=== PATIENT | female | born 1950 | race Caucasian/White ===

== ENCOUNTER 2016-05-07 14:44 | Emergency (ER) | payer MEDICARE ==
[~2016-05-07] VITALS: Ht 142.2 cm; Wt 41.0 kg
[~2016-05-07 14:44] MED LIST: BONI3INJ IV; FOLI1TAB PO; HYDR200T42 PO; METH2.5 PO; OMEP20CA5 PO; PRED2.5T4 PO
[2016-05-07 14:54] VITALS: BP 126/68; PULSE 104; RESP 16; TEMP 97.9; O2SAT 100
[2016-05-07] MEDS ORDERED: PRED5TAB PO (15:10)
[2016-05-07] MEDS ORDERED: FOLI1TAB4 PO (15:10)
[2016-05-07] MEDS ORDERED: METH2.5T PO (15:10)
[2016-05-07] MEDS ORDERED: PLAQ200T PO (15:10)
--- NOTE | 2016-05-07 15:16 | PD ---
HPI Chief Complaint: Musculoskeletal Complaint Time Seen by Provider: 15:08 Travel History International Travel<30 days: No Contact w/Intl Traveler<30days: No Traveled to known affect area: No History of Present Illness HPI 65-year-old female complains of right shoulder pain. Patient states that she fell on the bathroom today. Patient states that she landed on her right side. Patient states that she probably hit her head. Patient denies loss of consciousness. Patient denies any headache or neck pain. Patient denies any chest pain or shortness of breath. Patient denies abdominal pain. Patient states that she has sharp pain localized to right shoulder. Patient denies any pain radiation. Patient denies any focal weakness or numbness of extremity. On a scale of 1-10 the pain is a 9. PFSH Past Medical History Arthritis: Yes (RA) GERD: Yes (ACID REFLUX-HEARTBURN) Menopausal: Yes Past Surgical History Tonsillectomy: Yes Other Surgery: Yes (BILAT FEET R/T INFECTIONS) Social History Alcohol Use: No Tobacco Use: No Substance Use: No Allergies-Medications (Allergen,Severity, Reaction): Coded Allergies: No Known Allergies (Verified , 05/07/16) Reported Meds & Prescriptions Reported Meds & Active Scripts Active Reported Prednisone 5 Mg Tab 5 Mg PO DAILY Methotrexate 2.5 Mg Tab 15 Mg PO Q7D Plaquenil (Hydroxychloroquine Sulfate) 200 Mg Tab 200 Mg PO DAILY Take with food Folate (Folic Acid) 1 Mg Tab 1 Mg PO DAILY Review of Systems General / Constitutional: No: Fever Eyes: No: Visual changes HENT: No: Headaches Cardiovascular: No: Chest Pain or Discomfort Respiratory: No: Shortness of Breath Gastrointestinal: No: Abdominal Pain Genitourinary: No: Dysuria Musculoskeletal: Positive: Pain Skin: No Rash Neurologic: No: Weakness Psychiatric: No: Depression Endocrine: No: Polydipsia Hematologic/Lymphatic: No: Easy Bruising Physical Exam Narrative GENERAL: Well-nourished, well-developed patient. SKIN: Warm and dry. HEAD: Normocephalic. EYES: No scleral icterus. No injection or drainage. NECK: Supple, trachea midline. No JVD or lymphadenopathy. CARDIOVASCULAR: Regular rate and rhythm without murmurs, gallops, or rubs. RESPIRATORY: Breath sounds equal bilaterally. No accessory muscle use. GASTROINTESTINAL: Abdomen soft, non-tender, nondistended. MUSCULOSKELETAL: No cyanosis, or edema. BACK: Nontender without obvious deformity. No CVA tenderness. Patient has soft tissue swelling tenderness diffuse over the right shoulder joint. Limited range of motion the right shoulder secondary to pain. Sensorimotor function distally intact. Data Data Last Documented VS Vital Signs Date Time Temp Pulse Resp B/P Pulse Ox O2 Delivery O2 Flow Rate FiO2 05/07/16 14:54 97.9 104 16 126/68 100 Orders Shoulder, Limited(2vws) (05/07/16 15:08) Resp Oxygen Jeremy C Titrat 1-4 L (05/07/16 ) Ondansetron Inj (Zofran Inj) (05/07/16 16:00) Acetaminophen (Tylenol) (05/07/16 16:00) Sodium Chloride 0.9% Flush (Ns Flush) (05/07/16 21:00) Sodium Chloride 0.9% Flush (Ns Flush) (05/07/16 16:00) Shoulder, Limited(2vws) (05/07/16 16:07) MDM Medical Decision Making Medical Screen Exam Complete: Yes Emergency Medical Condition: Yes Differential Diagnosis Differential diagnosis including contusion, fracture, dislocation. Narrative Course 65-year-old female with right shoulder injury. Patient was x-ray and re-x- rayed right shoulder. First set of x-ray with possible dislocation. Second set x-ray without evidence of dislocation. Arthritic changes. Possible evulsion fracture acromion. Sling applied right arm. Diagnosis Primary Impression: Contusion of right shoulder Qualified Code: S40.011A - Contusion of right shoulder, initial encounter Patient Instructions: General Instructions Additional Instructions: Sling applied right arm. Tylenol with codeine as directed for pain. Follow-up with orthopedist. Med/Other Pt SpecificInfo: Prescription(s) given Scripts Acetaminophen-Codeine (Tylenol-Codeine #3)300-30 mg Tab1 Tab PO Q6HR PRN (PAIN SCALE 1 TO 10) #20 TAB Prov:Zaid Harrison MD 05/07/16 Disposition: 01 DISCHARGE HOME Condition: Stable Zaid Harrison MD May 07, 2016 15:16
[2016-05-07] MEDS ORDERED: ACETAMINOPHEN 325 MG TAB PO PRN (16:00)
[2016-05-07] MEDS ORDERED: ONDANSETRON HCL 4 MG/2 ML VIAL IV PRN (16:00)
[2016-05-07] MEDS ORDERED: SODIUM CHLORIDE 0.9% FLUSH 5 ML FLUSH IVF PRN (16:00)
[2016-05-07] MEDS ORDERED: TYLETAB34 PO (16:20)
[2016-05-07 16:39] VITALS: BP 130/67
--- NOTE | 2016-05-07 16:42 | RADHPO ---
EXAM DATE/TIME: 05/07/2016 15:22 [facility] COMPARISON: No previous studies available for comparison. INDICATIONS : Fell, right shoulder pain, limited ROM MEDICAL HISTORY : None. SURGICAL HISTORY : None. ENCOUNTER: Initial ACUITY: 1 day PAIN SCORE: 10/10 LOCATION: Right shoulder FINDINGS: There is an anterior/inferior dislocation of the shoulder on the AP. On the axillary, this appears to have been reduced. There is evidence for chronic rotator cuff tear with articular calcifications evident. CONCLUSION: Dislocation appeared to have been reduced. Complete shoulder series is suggested. Jose Miguel Coleman MD FACR on May 07, 2016 at 16:33 Board Certified Radiologist. This report was verified electronically.
--- NOTE | 2016-05-07 16:43 | RADHPO ---
EXAM DATE/TIME: 05/07/2016 16:10 [facility] COMPARISON: SHOULDER RIGHT LTD (2VWS), May 07, 2016, 15:22. INDICATIONS : Fell, right shoulder pain, limited ROM, MEDICAL HISTORY : None. SURGICAL HISTORY : None. ENCOUNTER: Initial ACUITY: 1 day PAIN SCORE: 10/10 LOCATION: Right shoulder FINDINGS/CONCLUSION: Alignment is now anatomic. There is evidence for chronic rotator cuff tear. There are extensive deg enerative changes about the shoulder. The humerus is in anatomic alignment. Jose Miguel Coleman MD FACR on May 07, 2016 at 16:36 Board Certified Radiologist. This report was verified electronically.
[2016-05-07] MEDS ORDERED: SODIUM CHLORIDE 0.9% FLUSH 5 ML FLUSH IVF SCH (21:00)
== END 2016-05-07 16:45 | disposition home or self-care (01) ==
LOC: PHED 14:44
DX: S40.011A Contusion of right shoulder, initial encounter (principal); M06.9 Rheumatoid arthritis, unspecified; Z87.19 Personal history of other diseases of the digestive system; W18.39XA Other fall on same level, initial encounter; Y92.002 Bathroom of unspecified non-institutional (private) residence as the place of occurrence of the external cause
CPT/HCPCS: 73030; 99283

== ENCOUNTER 2016-10-31 13:15 | Inpatient (IN) | payer MEDICARE ==
[~2016-10-31] VITALS: Ht 142.2 cm; Wt 37.5 kg
[~2016-10-31 13:15] MED LIST changes: -BONI3INJ IV; -FOLI1TAB PO; +FOLI1TAB4 PO; -HYDR200T42 PO; -METH2.5 PO; +METH2.5T PO; -OMEP20CA5 PO; +PLAQ200T PO; -PRED2.5T4 PO; +PRED5TAB PO; +TYLETAB34 PO
[2016-10-31 13:17] VITALS: BP 148/75; PULSE 128; RESP 18; TEMP 97.8; O2SAT 100
--- NOTE | 2016-10-31 13:23 | PD ---
Physical Exam Time Seen by Provider: 13:21 Narrative 66 y/o female sent here to be admitted for suspected osteomyelitis R foot, MRI w /without contrast R foot requested. Sent by Dr. Alfaro. Vital signs reviewed. Seen at triage desk. Awaiting bed placement. Data Data Last Documented VS Vital Signs Date Time Temp Pulse Resp B/P Pulse Ox O2 Delivery O2 Flow Rate FiO2 10/31/16 13:17 97.8 128 18 148/75 100 MDM Medical Record Reviewed: Yes Supervised Visit with ANNABEL: No Pawan Lopez Oct 31, 2016 13:23
--- NOTE | 2016-10-31 13:48 | PD ---
HPI Chief Complaint: Skin Problem Time Seen by Provider: 13:48 Travel History International Travel<30 days: No Contact w/Intl Traveler<30days: No Traveled to known affect area: No History of Present Illness HPI 66-year-old female with history of RA, on Plaquenil, methotrexate, and prednisone, presents to emergency department today for further evaluation of a left foot wound. Patient states she developed an ulcer on the plantar surface of her right foot approximately 6 weeks ago. She has been being followed by Dr. Craft, salon supervisor. She went there today and the wound was debrided at which time she was advised to come to the emergency department for further evaluation, admission, and treatment for possible osteomyelitis. Patient reports moderate pain in the right foot. She has been taking Keflex prior to today. She denies any fever or chills. No other symptoms to report. PFSH Past Medical History Arthritis: Yes (RA) GERD: Yes (ACID REFLUX-HEARTBURN) Menopausal: Yes Past Surgical History Tonsillectomy: Yes Other Surgery: Yes (BILAT FEET R/T INFECTIONS) Social History Alcohol Use: No Tobacco Use: No Substance Use: No Allergies-Medications (Allergen,Severity, Reaction): Coded Allergies: No Known Allergies (Verified , 05/07/16) Reported Meds & Prescriptions Reported Meds & Active Scripts Active Tylenol-Codeine #3 (Acetaminophen-Codeine) 300-30 mg Tab 1 Tab PO Q6HR PRN Reported Prednisone 5 Mg Tab 5 Mg PO DAILY Methotrexate 2.5 Mg Tab 15 Mg PO Q7D Plaquenil (Hydroxychloroquine Sulfate) 200 Mg Tab 200 Mg PO DAILY Take with food Folate (Folic Acid) 1 Mg Tab 1 Mg PO DAILY Review of Systems Except as stated in HPI: all other systems reviewed are Neg Physical Exam Narrative GENERAL: Well-nourished, elderly appearing female patient, in no acute distress SKIN: Focused skin assessment warm/dry. 1 cm in diameter ulcerative lesion on the plantar surface of the lateral aspect of the right foot. Tender to palpate. HEAD: Atraumatic. Normocephalic. EYES: Pupils equal and round. No scleral icterus. No injection or drainage. ENT: No nasal bleeding or discharge. Mucous membranes pink and moist. NECK: Trachea midline. No JVD. CARDIOVASCULAR: Regular rate and rhythm. No murmur appreciated. RESPIRATORY: No accessory muscle use. Clear to auscultation. Breath sounds equal bilaterally. GASTROINTESTINAL: Abdomen soft, non-tender, nondistended. Hepatic and splenic margins not palpable. MUSCULOSKELETAL: Multiple deformities of the finger and wrist, consistent with RA. Patient has amputation of all right toes. No clubbing. No cyanosis. No edema. NEUROLOGICAL: Awake and alert. No obvious cranial nerve deficits. Motor grossly within normal limits. Normal speech. PSYCHIATRIC: Appropriate mood and affect; insight and judgment normal. Data Data Last Documented VS Vital Signs Date Time Temp Pulse Resp B/P Pulse Ox O2 Delivery O2 Flow Rate FiO2 10/31/16: 97.8 128 18 148/75 100 Orders Complete Blood Count With Diff (10/31/16 13:24) Comprehensive Metabolic Panel (10/31/16 13:24) Prothrombin Time / Inr (Pt) (10/31/16 13:24) Act Partial Throm Time (Ptt) (10/31/16 13:24) Lactic Acid Sepsis Protocol (10/31/16 13:24) Blood Culture (10/31/16 13:24) C-Reactive Protein (Crp) (10/31/16 13:24) Westergren Sedimentation Rate (10/31/16 13:24) Electrocardiogram (10/31/16 ) Mri Foot W&W/O Contrast (10/31/16 ) Chest, Single Ap (10/31/16 ) Sodium Chlor 0.9% 1000 Ml Inj (Ns 1000 M (10/31/16 14:00) Piperacil-Tazo 4.5 Gm Premix (Zosyn 4.5 (10/31/16 14:29) Vancomycin Inj (Vancomycin Inj) (10/31/16 14:29) Labs Laboratory Tests Test 10/31/16 10/31/16 13:43 13:47 Lactic Acid Level 3.7 mmol/L White Blood Count 9.5 TH/MM3 Red Blood Count 4.16 MIL/MM3 Hemoglobin 10.9 GM/DL Hematocrit 34.0 % Mean Corpuscular Volume 81.8 FL Mean Corpuscular Hemoglobin 26.2 PG Mean Corpuscular Hemoglobin 32.0 % Concent Red Cell Distribution Width 17.8 % Platelet Count 172 TH/MM3 Mean Platelet Volume 11.6 FL Neutrophils (%) (Auto) 90.1 % Lymphocytes (%) (Auto) 7.4 % Monocytes (%) (Auto) 2.4 % Eosinophils (%) (Auto) 0.0 % Basophils (%) (Auto) 0.1 % Neutrophils # (Auto) 8.5 TH/MM3 Lymphocytes # (Auto) 0.7 TH/MM3 Monocytes # (Auto) 0.2 TH/MM3 Eosinophils # (Auto) 0.0 TH/MM3 Basophils # (Auto) 0.0 TH/MM3 CBC Comment DIFF FINAL Differential Comment Erythrocyte Sedimentation Rate 50 mm/hr Prothrombin Time 9.6 SEC Prothromb Time International 0.9 RATIO Ratio Activated Partial 23.3 SEC Thromboplast Time Sodium Level 141 MEQ/L Potassium Level 4.0 MEQ/L Chloride Level 106 MEQ/L Carbon Dioxide Level 23.5 MEQ/L Anion Gap 12 MEQ/L Blood Urea Nitrogen 12 MG/DL Creatinine 0.75 MG/DL Estimat Glomerular Filtration 77 ML/MIN Rate Random Glucose 161 MG/DL Calcium Level 9.3 MG/DL Total Bilirubin 0.2 MG/DL Aspartate Amino Transf 14 U/L (AST/SGOT) Alanine Aminotransferase 9 U/L (ALT/SGPT) Alkaline Phosphatase 72 U/L C-Reactive Protein 0.76 MG/DL Total Protein 7.0 GM/DL Albumin 3.2 GM/DL MDM Medical Decision Making Medical Screen Exam Complete: Yes Emergency Medical Condition: Yes Medical Record Reviewed: Yes Differential Diagnosis Venous stasis ulcer versus abscess versus osteomyelitis versus abrasion versus avulsion Narrative Course 66 year old female presents to emergency department for further evaluation of possible osteomyelitis the right foot. Patient is tachycardic upon arrival. She is afebrile. Other vital signs are stable. She does have an ulcerative wound on the plantar surface of the right foot. It is open from debridement earlier today by salon supervisor. CBC is without leukocyte hoses. Sedimentation rate is 50. CMP is without acute concern. Lactic acid is 3.7. CRP is 0.76. Patient is given IV vancomycin and Zosyn. MRI of the foot is ordered. A call has been placed to [facility] for admission. Diagnosis Primary Impression: Ulcer of right foot Qualified Code: L97.519 - Ulcer of right foot, with unspecified severity Additional Impressions: Failure of outpatient treatment Lactic acid acidosis Admitting Information Admitting Physician Requests: Admit Condition: Stable Mariposa Gaston Oct 31, 2016 13:48
[2016-10-31] MEDS ORDERED: SODIUM CHLOR 0.9% 1000 ML INJ 1,000 ML IV ONE (14:00)
[2016-10-31 14:06] LABS: AUTOMATED NEUTROPHIL # 8.5 TH/MM3 (1.8-7.7); BASOPHIL % 0.1 % (0.0-2.0); HEMO FLAGS DIFF FINAL; LYMPH % 7.4 % (9.0-44.0); LYMPHOCYTE # 0.7 TH/MM3 (1.0-4.8); MEAN CELL VOLUME 81.8 FL (80.0-100.0); MEAN CORPUSCULAR HEMOGLOBIN 26.2 PG (27.0-34.0); MONO % 2.4 % (0.0-8.0); NEUT % 90.1 % (16.0-70.0); PLATELET COUNT 172 TH/MM3 (150-450); RED BLOOD COUNT 4.16 MIL/MM3 (4.00-5.30); RED CELL DISTRIBUTION WIDTH 17.8 % (11.6-17.2); WHITE BLOOD COUNT 9.5 TH/MM3 (4.0-11.0)
[2016-10-31 14:18] LABS: APTT (PATIENT) 23.3 SEC (24.3-30.1); INTERNATIONAL NORMALIZED RATIO 0.9 RATIO; PROTHROMBIN TIME - PATIENT 9.6 SEC (9.8-11.6)
[2016-10-31 14:25] LABS: ALT (GPT) 9 U/L (10-53); ANION GAP 12 MEQ/L (5-15); AST (GOT) 14 U/L (15-37); BICARBONATE 23.5 MEQ/L (21.0-32.0); BLOOD UREA NITROGEN 12 MG/DL (7-18); CHLORIDE 106 MEQ/L (98-107); GLOMERULAR FILTRATION RATE 77 ML/MIN (>89); SODIUM (NA) 141 MEQ/L (136-145)
[2016-10-31 14:28] LABS: ALKALINE PHOSPHATASE 72 U/L (45-117); TOTAL BILIRUBIN ADULT 0.2 MG/DL (0.2-1.0)
[2016-10-31] MEDS ORDERED: PIPERACIL-TAZO 4.5 GM PREMIX 100 ML IV STA (14:29)
[2016-10-31] MEDS ORDERED: VANCOMYCIN INJ 1,000 MG in SODIUM CHLOR 0.9% 250 ML INJ 250 ML IV STA (14:29)
--- NOTE | 2016-10-31 15:18 | RADRPT ---
EXAM DATE/TIME: 10/31/2016 14:05 [facility] COMPARISON: CHEST PA & LAT, February 16, 2011, 20:52. INDICATIONS : Sepsis. MEDICAL HISTORY : None. SURGICAL HISTORY : Partial foot amputation. ENCOUNTER: Initial ACUITY: 1 day PAIN SCORE: 0/10 LOCATION: Bilateral chest FINDINGS: The lungs are clear without infiltrate, nodule, or mass. There is no appreciable pleural effusion fo r technique. Heart and mediastinum are unremarkable. CONCLUSION: No acute cardiopulmonary disease. Kaushal Jenkins MD on October 31, 2016 at 15:16 Board Certified Radiologist. This report was verified electronically.
[2016-10-31 15:37] VITALS: BP 136/60; PULSE 88; RESP 16; O2SAT 100
[2016-10-31 15:58] LABS: LACTIC ACID GHOST NOT REPORTABLE
--- NOTE | 2016-10-31 15:59 | HHI.HP ---
HPI Service [facility] Hospitalists Primary Care Physician Xavier Pena MD Admission Diagnosis Right foot ulcer; r/o osteomyelitis; lactic acidosis; failed outpt tx Chief Complaint: Right foot wound Travel History International Travel<30 Days: No Contact w/Intl Traveler <30 Da: No Traveled to Known Affected Are: No History of Present Illness Ms. Gerber is a pleasant 66 y/o with RA, on Plaquenil, methotrexate, and prednisone, who presented to the ED on 10/31/16 for further evaluation of a right foot wound. Patient states she developed an ulcer on the plantar surface of her right foot approximately 6 weeks ago. She has been followed by Dr. Craft as an outpt. She was seen there today and the wound was debrided at which time she was advised to come to the emergency department for further evaluation, admission, and treatment for possible osteomyelitis. Patient reports moderate pain in the right foot. She states that on 10/25/16 she noted some pus draining from the wound. She had Keflex at home and started taking it then. She denies any fever or chills. MRI of the foot is ordered. Blood cultures and wound culture was taken in the ED. Pt was given IV Vancomycin and Zosyn in the ED. Her ESR is 50 and her CRP is 0.76. Review of Systems Constitutional: DENIES: Fever, Chills Eyes: DENIES: Vision loss Ears, nose, mouth, throat: DENIES: Hearing loss Respiratory: DENIES: Cough, Shortness of breath Cardiovascular: DENIES: Chest pain, Palpitations, Lower Extremity Edema Gastrointestinal: DENIES: Abdominal pain, Constipation, Diarrhea, Nausea, Vomiting Integumentary: COMPLAINS OF: Abnormal pigmentation Neurologic: DENIES: Headache, Poor Balance Psychiatric: DENIES: Confusion Past Family Social History Past Medical History Severe RA, followed by Dr. Girard Osteoporosis Past Surgical History Amputated all toes on right foot Reported Medications Tylenol-Codeine #3 (Acetaminophen-Codeine) 300-30 mg Tab 1 Tab PO Q6HR PRN Prednisone 5 Mg PO DAILY Methotrexate 2.5 Mg Tab 15 Mg PO Q7D Plaquenil 200 Mg PO DAILY Folate 1 Mg PO DAILY Allergies: Coded Allergies: No Known Allergies (Verified , 05/07/16) Family History Noncontributory Social History Denies any alcohol, tobacco or illicit drug use Physical Exam Vital Signs Vital Signs Date Time Temp Pulse Resp B/P Pulse Ox O2 Delivery O2 Flow Rate FiO2 10/31/16 13:17 97.8 128 18 148/75 100 Physical Exam GENERAL: This is a well-nourished, well-developed patient, in no apparent distress. HEENT: Atraumatic. Normocephalic. No temporal or scalp tenderness. No scleral icterus. Airway patent. NECK: Trachea midline, supple, nontender. CARDIO: Regular. RESP: CTA bilaterally. No wheezes, rales, or rhonchi. ABD: +BS, soft, non-tender, nondistended. EXT: Right foot all toes amputated, 1 cm in diameter ulcerative lesion on the plantar surface of the lateral aspect of the right foot good pulses noted. Deformity of both hands consistent with RA NEURO: Awake and alert. Motor and sensory grossly within normal limits. Normal speech. Laboratory Laboratory Tests Test 10/31/16 10/31/16 13:43 13:47 Lactic Acid Level 3.7 White Blood Count 9.5 Red Blood Count 4.16 Hemoglobin 10.9 Hematocrit 34.0 Mean Corpuscular Volume 81.8 Mean Corpuscular Hemoglobin 26.2 Mean Corpuscular Hemoglobin 32.0 Concent Red Cell Distribution Width 17.8 Platelet Count 172 Mean Platelet Volume 11.6 Neutrophils (%) (Auto) 90.1 Lymphocytes (%) (Auto) 7.4 Monocytes (%) (Auto) 2.4 Eosinophils (%) (Auto) 0.0 Basophils (%) (Auto) 0.1 Neutrophils # (Auto) 8.5 Lymphocytes # (Auto) 0.7 Monocytes # (Auto) 0.2 Eosinophils # (Auto) 0.0 Basophils # (Auto) 0.0 CBC Comment DIFF FINAL Differential Comment Erythrocyte Sedimentation Rate 50 Prothrombin Time 9.6 Prothromb Time International 0.9 Ratio Activated Partial 23.3 Thromboplast Time Sodium Level 141 Potassium Level 4.0 Chloride Level 106 Carbon Dioxide Level 23.5 Anion Gap 12 Blood Urea Nitrogen 12 Creatinine 0.75 Estimat Glomerular Filtration 77 Rate Random Glucose 161 Calcium Level 9.3 Total Bilirubin 0.2 Aspartate Amino Transf 14 (AST/SGOT) Alanine Aminotransferase 9 (ALT/SGPT) Alkaline Phosphatase 72 C-Reactive Protein 0.76 Total Protein 7.0 Albumin 3.2 Date/Time Procedure Status Source Growth 10/31/16 14:50 Gram Stain Received Wound Foot Pending 10/31/16 14:50 Wound Culture Received Wound Foot Pending 10/31/16 13:50 Aerobic Blood Culture Received Blood Peripheral Pending 10/31/16 13:50 Anaerobic Blood Culture Received Blood Peripheral Pending Result Diagram: 10/31/16 1347 10/31/16 1347 Imaging Last Impressions Chest X-Ray 10/31/16 0000 Signed Impressions: Service Date/Time: Monday, October 31, 2016 14:05 - CONCLUSION: No acute cardiopulmonary disease. 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 - She reportedly developed an ulcer on the plantar surface of her right foot approximately 6 weeks ago and has been followed by Dr. Alfaro. She was seen by Dr. Alfaro today and the wound was debrided at which time she was advised to come to the emergency department for further evaluation, admission, and treatment for possible osteomyelitis. - She had been taking Keflex prior to today. - MRI of the foot is ordered. - Blood cultures and wound culture was taken in the ED. - Pt was given IV Vancomycin and Zosyn in the ED. We will hold on continuing antibiotics until see by podiatry - Her ESR is 50 and her CRP is 0.76. - Pain control PRN - Podiatry is consulted - Supportive care (2) Failure of outpatient treatment Status: Acute Plan: - See above. (3) Rheumatoid arthritis Status: Chronic Plan: - Pt with severe RA on Methotrexate, Plaquenil, and Prednisone - Pt follows with Dr. Haynes (4) GERD (gastroesophageal reflux disease) Status: Chronic Plan: PPI Assessment and Plan Patient examined. Assessment and plan formulated with Lulú Hoover PA-C. I agree with the above. Physician Certification 2 Midnight Certification Type: Admission for Inpatient Services Order for Inpatient Services The services are ordered in accordance with Medicare regulations or non- Medicare payer requirements, as applicable. In the case of services not specified as inpatient-only, they are appropriately provided as inpatient services in accordance with the 2-midnight benchmark. Estimated LOS (days): 3 3 days is the estimated time the patient will need to remain in the hospital, assuming treatment plan goals are met and no additional complications. Post-Hospital Plan: Not yet determined Problem Qualifiers (1) Ulcer of right foot: Qualified Code: L97.519 - Ulcer of right foot, with unspecified severity Lulú Hoover Oct 31, 2016 15:59 Etienne Minaya MD Oct 31, 2016 20:02
[2016-10-31] MEDS ORDERED: VITATAB25 PO (16:02)
[2016-10-31] MEDS ORDERED: FOLI1TAB6 PO (16:02)
[2016-10-31] MEDS ORDERED: ACETAMINOPHEN 325 MG TAB PO PRN (16:30)
[2016-10-31] MEDS ORDERED: VANCOMYCIN INJ 1,000 MG in SODIUM CHLOR 0.9% 250 ML INJ 250 ML IV SCH (16:30)
[2016-10-31] MEDS ORDERED: ACETAMINOPHEN/HYDROcodone 325 MG/5 MG TAB PO PRN (16:30)
[2016-10-31] MEDS ORDERED: Vancomycin Consult Pharmacy 1 EA OTHER SCH (16:30)
[2016-10-31] MEDS ORDERED: ONDANSETRON HCL 4 MG/2 ML VIAL IV PRN (16:30)
[2016-10-31 17:22] VITALS: BP 155/85
[2016-10-31] MEDS ORDERED: GADODIAMIDE PF 287 MG/ML 10 ML VIAL (for RAD MRI) IV ONE (18:41)
[2016-10-31 20:00] VITALS: BP 136/76; PULSE 95; RESP 20; TEMP 96.2; O2SAT 100
[2016-10-31] MEDS: DOCUSATE SODIUM 100 MG CAP PO SCH (21:00)
--- NOTE | 2016-10-31 22:09 | EKG ---
Date Performed: 10/31/2016 Time Performed: 14:28:13 PTAGE: 66 years EKG: Sinus rhythm MODERATE T-WAVE ABNORMALITY ABNORMAL ECG PREVIOUS TRACING : 02/16/2011 19.39 Compared to the previous tracing T wave changes present DOCTOR: Elias Nava Interpretating Date/Time 10/31/2016 22:08:40
--- NOTE | 2016-10-31 23:31 | RADRPT ---
EXAM DATE/TIME: 10/31/2016 18:13 [facility] COMPARISON: No previous studies available for comparison. INDICATIONS : Osteomyelitis. Wound on plantar surface of right foot for six weeks. CONTRAST: 10 cc Omniscan (gadodiamide) IV MEDICAL HISTORY : Rheumatoid arthritis. Osteoporosis. SURGICAL HISTORY : Tonsillectomy. Left hip. Toes amputated, right foot. ENCOUNTER: Subsequent ACUITY: 1 month PAIN SCORE: 5/10 LOCATION: Right foot TECHNIQUE: Multiplanar, multisequence MRI examination was performed without contrast and after the intravenous a dministration of gadolinium. FINDINGS: Previous distal foot amputation at the level of the mid metatarsals. There is an approximately 19 x 2 3 mm disc-shaped fluid collection distal and plantar to the first metatarsal remnant that is about 6 mm in maximal thickness. I don't see significant rim enhancement to substantiate that this is an absc ess. I don't see signal changes are of the first metatarsal remnant to support osteomyelitis. An irregular rim-enhancing fluid collection is seen plantar and distal to the fourth and fifth metata rsal remnants. This appears to be communicating with the skin. The fluid collection is roughly 10 x 1 5 x 27 mm in size. Scattered foci of cobos artifact noted which may represent postsurgical change or small gas bubbles. Distal surface of the fifth metatarsal remnant appears considerably irregular and in contact with the fluid collection, of concern for developing osteomyelitis. However, I don't see s ignal changes within the deep medullary space of the bone. Second, third and fourth metatarsals are quite clearly without osteomyelitis. CONCLUSION: 1. Previous distal foot amputation at the level of the mid metatarsals. 2. Soft tissue abscess plantar/distal to the fourth and fifth metatarsal remnants. The abscess extend s down to the distal surface of the fifth metatarsal remnant and the bone itself appears irregular; I believe there is superficial osteomyelitis developing of this bone. No osteomyelitis of the fourth m etatarsal. 3. Slightly organized fluid collection plantar and distal to the first metatarsal remnant that is mos t likely postoperative seroma. No features to substantiate abscess or first metatarsal remnant osteom yelitis. Lenard Hogan MD on October 31, 2016 at 23:21 Board Certified Radiologist. This report was verified electronically.
[2016-11-01] VITALS: BP 136/65; PULSE 88; RESP 21; TEMP 96.8; O2SAT 100
[2016-11-01 05:40] LABS: AUTOMATED NEUTROPHIL # 4.7 TH/MM3 (1.8-7.7); BASOPHIL % 0.2 % (0.0-2.0); EOSINOPHIL % 0.3 % (0.0-4.0); HEMATOCRIT 28.7 % (35.0-46.0); HEMO FLAGS DIFF FINAL; LYMPH % 26.5 % (9.0-44.0); LYMPHOCYTE # 1.9 TH/MM3 (1.0-4.8); MEAN CELL VOLUME 80.9 FL (80.0-100.0); MEAN CORPUSCULAR HEMOGLOBIN 26.5 PG (27.0-34.0); MEAN CORPUSCULAR HGB CONC 32.7 % (32.0-36.0); MONO % 6.8 % (0.0-8.0); NEUT % 66.2 % (16.0-70.0); PLATELET COUNT 143 TH/MM3 (150-450); RED BLOOD COUNT 3.55 MIL/MM3 (4.00-5.30); WHITE BLOOD COUNT 7.1 TH/MM3 (4.0-11.0)
[2016-11-01 06:07] LABS: BICARBONATE 24.5 MEQ/L (21.0-32.0); MAGNESIUM 1.9 MG/DL (1.5-2.5); POTASSIUM 3.8 MEQ/L (3.5-5.1)
[2016-11-01 08:00] VITALS: BP 163/76; PULSE 112; RESP 17; TEMP 96.7; O2SAT 99
[2016-11-01] MEDS: PANTOPRAZOLE SOD 40 MG DELAYED RELEASE TAB PO SCH (08:21)
[2016-11-01] MEDS: DOCUSATE SODIUM 100 MG CAP PO SCH ×2 (08:25→20:36)
--- NOTE | 2016-11-01 09:54 | PD.PN.STU ---
Subjective Remarks Patient doing well without complaint MRI shows evidence of superficial osteomyelitis in remnants of 5th right metatarsal, 4th metatarsal without apparent evidence Surgery expected this evening for debridement with possible resection of bone, pending surgical findings Objective Vitals Vital Signs Date Time Temp Pulse Resp B/P Pulse Ox O2 Delivery O2 Flow Rate FiO2 11/01/16 08:00 96.7 112 17 163/76 99 11/01/16 00:00 96.8 88 21 136/65 100 10/31/16 20:00 96.2 95 20 136/76 100 10/31/16 17:22 80 16 155/85 98 10/31/16 15:37 88 16 136/60 100 Room Air 10/31/16 13:17 97.8 128 18 148/75 100 I/O 10/31/16 10/31/16 10/31/16 11/01/16 11/01/16 11/01/16 07:00 15:00 23:00 07:00 15:00 23:00 Intake Total 1240 ml 240 ml Output Total 0 ml Balance 1240 ml 240 ml Intake Oral 240 ml 240 ml IV Total 1000 ml 0 ml Output Urine Total 0 ml # Voids 2 Result Diagram: 11/01/16 0410 11/01/16 0410 Other Results Laboratory Tests Test 10/31/16 10/31/16 10/31/16 11/01/16 13:43 13:47 17:53 04:10 Lactic Acid Level 3.7 mmol/L 1.8 mmol/L (0.4-2.0) (0.4-2.0) White Blood Count 9.5 TH/MM3 7.1 TH/MM3 (4.0-11.0) (4.0-11.0) Red Blood Count 4.16 MIL/MM3 3.55 MIL/MM3 (4.00-5.30) (4.00-5.30) Hemoglobin 10.9 GM/DL 9.4 GM/DL (11.6-15.3) (11.6-15.3) Hematocrit 34.0 % 28.7 % (35.0-46.0) (35.0-46.0) Mean Corpuscular Volume 81.8 FL 80.9 FL (80.0-100.0) (80.0-100.0) Mean Corpuscular Hemoglobin 26.2 PG 26.5 PG (27.0-34.0) (27.0-34.0) Mean Corpuscular Hemoglobin 32.0 % 32.7 % Concent (32.0-36.0) (32.0-36.0) Red Cell Distribution Width 17.8 % 18.0 % (11.6-17.2) (11.6-17.2) Platelet Count 172 TH/MM3 143 TH/MM3 (150-450) (150-450) Mean Platelet Volume 11.6 FL 12.2 FL (7.0-11.0) (7.0-11.0) Neutrophils (%) (Auto) 90.1 % 66.2 % (16.0-70.0) (16.0-70.0) Lymphocytes (%) (Auto) 7.4 % 26.5 % (9.0-44.0) (9.0-44.0) Monocytes (%) (Auto) 2.4 % (0.0-8.0) 6.8 % (0.0-8.0) Eosinophils (%) (Auto) 0.0 % (0.0-4.0) 0.3 % (0.0-4.0) Basophils (%) (Auto) 0.1 % (0.0-2.0) 0.2 % (0.0-2.0) Neutrophils # (Auto) 8.5 TH/MM3 4.7 TH/MM3 (1.8-7.7) (1.8-7.7) Lymphocytes # (Auto) 0.7 TH/MM3 1.9 TH/MM3 (1.0-4.8) (1.0-4.8) Monocytes # (Auto) 0.2 TH/MM3 0.5 TH/MM3 (0-0.9) (0-0.9) Eosinophils # (Auto) 0.0 TH/MM3 0.0 TH/MM3 (0-0.4) (0-0.4) Basophils # (Auto) 0.0 TH/MM3 0.0 TH/MM3 (0-0.2) (0-0.2) CBC Comment DIFF FINAL DIFF FINAL Differential Comment Erythrocyte Sedimentation Rate 50 mm/hr (0-30) Prothrombin Time 9.6 SEC (9.8-11.6) Prothromb Time International 0.9 RATIO Ratio Activated Partial 23.3 SEC Thromboplast Time (24.3-30.1) Sodium Level 141 MEQ/L 143 MEQ/L (136-145) (136-145) Potassium Level 4.0 MEQ/L 3.8 MEQ/L (3.5-5.1) (3.5-5.1) Chloride Level 106 MEQ/L 109 MEQ/L (98-107) (98-107) Carbon Dioxide Level 23.5 MEQ/L 24.5 MEQ/L (21.0-32.0) (21.0-32.0) Anion Gap 12 MEQ/L (5-15) 10 MEQ/L (5-15) Blood Urea Nitrogen 12 MG/DL (7-18) 10 MG/DL (7-18) Creatinine 0.75 MG/DL 0.64 MG/DL (0.50-1.00) (0.50-1.00) Estimat Glomerular Filtration 77 ML/MIN (>89) 93 ML/MIN (>89) Rate Random Glucose 161 MG/DL 78 MG/DL (74-106) (74-106) Calcium Level 9.3 MG/DL 8.6 MG/DL (8.5-10.1) (8.5-10.1) Total Bilirubin 0.2 MG/DL (0.2-1.0) Aspartate Amino Transf 14 U/L (15-37) (AST/SGOT) Alanine Aminotransferase 9 U/L (10-53) (ALT/SGPT) Alkaline Phosphatase 72 U/L (45-117) C-Reactive Protein 0.76 MG/DL (0.00-0.30) Total Protein 7.0 GM/DL (6.4-8.2) Albumin 3.2 GM/DL (3.4-5.0) Magnesium Level 1.9 MG/DL (1.5-2.5) Imaging Last 72 hours Impressions Foot MRI 10/31/16 0000 Signed Impressions: Service Date/Time: Monday, October 31, 2016 18:13 - CONCLUSION: 1. Previous distal foot amputation at the level of the mid metatarsals. 2. Soft tissue abscess plantar/distal to the fourth and fifth metatarsal remnants. The abscess extends down to the distal surface of the fifth metatarsal remnant and the bone itself appears irregular; I believe there is superficial osteomyelitis developing of this bone. No osteomyelitis of the fourth metatarsal. 3. Slightly organized fluid collection plantar and distal to the first metatarsal remnant that is most likely postoperative seroma. No features to substantiate abscess or first metatarsal remnant osteomyelitis. Lenard Hogan MD Chest X-Ray 10/31/16 0000 Signed Impressions: Service Date/Time: Monday, October 31, 2016 14:05 - CONCLUSION: No acute cardiopulmonary disease. Kaushal Jenkins MD Objective Remarks Patient resting comfortably RRR no rubs or gallops, 1/6 crescendo/decrescendo murmur heard right 2nd intercostal, consistent with Lungs clear bilaterally, no rales rhonchi wheezes Right lateral plantar foot abscess without swelling or erythema. No drainage. No leg edema noted Medications and IVs Current Medications Medications (Trade) Dose Ordered Sig/Anup Route PRN Reason Start Time Stop Time Status Last Admin Dose Admin Acetaminophen (Tylenol) 650 mg Q4H PRN PO fever or headache 10/31/16 16:30 Ondansetron HCl (Zofran Inj) 4 mg Q6H PRN IV nausea 10/31/16 16:30 Acetaminophen/ Hydrocodone Bitart ([place] 5-325 Mg) 1 tab Q4H PRN PO pain 2-5 10/31/16 16:30 Acetaminophen/ Hydrocodone Bitart ([place] 5-325 Mg) 2 tab Q4H PRN PO pain 6-10 10/31/16 16:30 Docusate Sodium (Colace) 100 mg BID PO 10/31/16 21:00 Pantoprazole Sodium (Protonix) 40 mg DAILY PO 11/01/16 09:00 11/01/16 08:21 A/P Assessment and Plan 1) Right foot ulcer -6 week history of ulcer with gradual progression, one week prior significant purulent discharge - Podiatry debrided 10/31, told patient to present to ED for imaging and possible surgical intervention - Had been taking Keflex via podiatry for 1 week, held in ED and given vanco/ zosin, currently not on antibiotic therapy - MRI of the right foot shows evidence of superficial osteomyelitis, surgery pending - Blood and wound cultures pending - Pain control PRN - Podiatry suggests surgical debridement (2) Failure of outpatient treatment Status: Acute Plan: - See above. 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 Haynes (4) GERD (gastroesophageal reflux disease) Status: Chronic Plan: PPI Traci Alonso M3 Nov 01, 2016 09:54
--- NOTE | 2016-11-01 11:24 | HHI.PR ---
Subjective Remarks No new complaints Denies much or any pain Afebrile Pt is planned for the OR this evening with podiatry Objective Vitals Vital Signs Date Time Temp Pulse Resp B/P Pulse Ox O2 Delivery O2 Flow Rate FiO2 11/01/16 08:00 96.7 112 17 163/76 99 11/01/16 00:00 96.8 88 21 136/65 100 10/31/16 20:00 96.2 95 20 136/76 100 10/31/16 17:22 80 16 155/85 98 10/31/16 15:37 88 16 136/60 100 Room Air 10/31/16 13:17 97.8 128 18 148/75 100 10/31/16 10/31/16 11/01/16 15:00 23:00 07:00 Intake Total 1240 ml 240 ml Output Total 0 ml Balance 1240 ml 240 ml Intake Oral 240 ml 240 ml IV Total 1000 ml 0 ml Output Urine Total 0 ml # Voids 2 Result Diagram: 11/01/16 0410 11/01/16 0410 Other Results Laboratory Tests Test 10/31/16 10/31/16 10/31/16 11/01/16 13:43 13:47 17:53 04:10 Lactic Acid Level 3.7 mmol/L 1.8 mmol/L White Blood Count 9.5 TH/MM3 7.1 TH/MM3 Red Blood Count 4.16 MIL/MM3 3.55 MIL/MM3 Hemoglobin 10.9 GM/DL 9.4 GM/DL Hematocrit 34.0 % 28.7 % Mean Corpuscular Volume 81.8 FL 80.9 FL Mean Corpuscular Hemoglobin 26.2 PG 26.5 PG Mean Corpuscular Hemoglobin 32.0 % 32.7 % Concent Red Cell Distribution Width 17.8 % 18.0 % Platelet Count 172 TH/MM3 143 TH/MM3 Mean Platelet Volume 11.6 FL 12.2 FL Neutrophils (%) (Auto) 90.1 % 66.2 % Lymphocytes (%) (Auto) 7.4 % 26.5 % Monocytes (%) (Auto) 2.4 % 6.8 % Eosinophils (%) (Auto) 0.0 % 0.3 % Basophils (%) (Auto) 0.1 % 0.2 % Neutrophils # (Auto) 8.5 TH/MM3 4.7 TH/MM3 Lymphocytes # (Auto) 0.7 TH/MM3 1.9 TH/MM3 Monocytes # (Auto) 0.2 TH/MM3 0.5 TH/MM3 Eosinophils # (Auto) 0.0 TH/MM3 0.0 TH/MM3 Basophils # (Auto) 0.0 TH/MM3 0.0 TH/MM3 CBC Comment DIFF FINAL DIFF FINAL Differential Comment Erythrocyte Sedimentation Rate 50 mm/hr Prothrombin Time 9.6 SEC Prothromb Time International 0.9 RATIO Ratio Activated Partial 23.3 SEC Thromboplast Time Sodium Level 141 MEQ/L 143 MEQ/L Potassium Level 4.0 MEQ/L 3.8 MEQ/L Chloride Level 106 MEQ/L 109 MEQ/L Carbon Dioxide Level 23.5 MEQ/L 24.5 MEQ/L Anion Gap 12 MEQ/L 10 MEQ/L Blood Urea Nitrogen 12 MG/DL 10 MG/DL Creatinine 0.75 MG/DL 0.64 MG/DL Estimat Glomerular Filtration 77 ML/MIN 93 ML/MIN Rate Random Glucose 161 MG/DL 78 MG/DL Calcium Level 9.3 MG/DL 8.6 MG/DL Total Bilirubin 0.2 MG/DL Aspartate Amino Transf 14 U/L (AST/SGOT) Alanine Aminotransferase 9 U/L (ALT/SGPT) Alkaline Phosphatase 72 U/L C-Reactive Protein 0.76 MG/DL Total Protein 7.0 GM/DL Albumin 3.2 GM/DL Magnesium Level 1.9 MG/DL Imaging Last Impressions Foot MRI 10/31/16 0000 Signed Impressions: Service Date/Time: Monday, October 31, 2016 18:13 - CONCLUSION: 1. Previous distal foot amputation at the level of the mid metatarsals. 2. Soft tissue abscess plantar/distal to the fourth and fifth metatarsal remnants. The abscess extends down to the distal surface of the fifth metatarsal remnant and the bone itself appears irregular; I believe there is superficial osteomyelitis developing of this bone. No osteomyelitis of the fourth metatarsal. 3. Slightly organized fluid collection plantar and distal to the first metatarsal remnant that is most likely postoperative seroma. No features to substantiate abscess or first metatarsal remnant osteomyelitis. Lenard Hogan MD Chest X-Ray 10/31/16 0000 Signed Impressions: Service Date/Time: Monday, October 31, 2016 14:05 - CONCLUSION: No acute cardiopulmonary disease. Kaushal Jenkins MD Last Impressions Chest X-Ray 10/31/16 0000 Signed Impressions: Service Date/Time: Monday, October 31, 2016 14:05 - CONCLUSION: No acute cardiopulmonary disease. 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 - She reportedly developed an ulcer on the plantar surface of her right foot approximately 6 weeks ago and has been followed by Dr. Alfaro. She was seen by Dr. Alfaro today and the wound was debrided at which time she was advised to come to the emergency department for further evaluation, admission, and treatment for possible osteomyelitis. - She had been taking Keflex prior to today. - MRI of the foot (10/31/16) --> Previous distal foot amputation at the level of the mid metatarsals. Soft tissue abscess plantar/distal to the fourth and fifth metatarsal remnants. The abscess extends down to the distal surface of the fifth metatarsal remnant and the bone itself appears irregular; I believe there is superficial osteomyelitis developing of this bone. No osteomyelitis of the fourth metatarsal. Slightly organized fluid collection plantar and distal to the first metatarsal remnant that is most likely postoperative seroma. No features to substantiate abscess or first metatarsal remnant osteomyelitis. - Blood cultures with NGTD - Wound culture pending. - Pt was given IV Vancomycin and Zosyn in the ED. - Podiatry following and pt planned for OR this evening - Her ESR is 50 and her CRP is 0.76. - Pain control PRN - Supportive care (2) Failure of outpatient treatment Status: Acute Plan: - See above. (3) Rheumatoid arthritis Status: Chronic Plan: - Pt with severe RA on Methotrexate, Plaquenil, and Prednisone - Pt follows with Dr. Haynes (4) GERD (gastroesophageal reflux disease) Status: Chronic Plan: PPI Assessment and Plan Patient examined. Assessment and plan formulated with Lulú Hoover PA-C. I agree with the above. plantar ulcer with underlying abscess and possible superficial osteo 5th metatarsal. TO OR today for surgical exploration. send surgical cx's. Problem Qualifiers (1) Ulcer of right foot: Qualified Code: L97.519 - Ulcer of right foot, with unspecified severity Lulú Hoover Nov 01, 2016 11:24 Etienne Minaya MD Nov 01, 2016 17:09
[2016-11-01 12:00] VITALS: BP 131/69; PULSE 93; RESP 16; TEMP 97.3; O2SAT 99
[2016-11-01] MEDS ORDERED: ePHEDrine/NS 25 MG/5 ML SYR IV ONE (12:00)
[2016-11-01] MEDS ORDERED: PHENYLEPH/NS 1000 MCG/10 ML SYR IV ONE (12:00)
[2016-11-01 16:00] VITALS: BP 144/72; PULSE 102; RESP 17; TEMP 97.3; O2SAT 99
--- NOTE | 2016-11-01 18:51 | PD.CONS ---
History of Present Illness Service Podiatry Consult Requested By ED Reason for Consult R foot wound, possible OM Primary Care Physician Xavier Pena MD Diagnoses: History of Present Illness Ms. Gerber is a pleasant 66 y/o with RA, on Plaquenil, methotrexate, and prednisone, who presented to the ED on 10/31/16 for further evaluation of a right foot wound. Patient states she developed an ulcer on the plantar surface of her right foot approximately 6 weeks ago and noticed a significant amount of pus come out of it a few days ago. The wound was noted to probe to bone in clinic yesterday and patient was sent to ED to evaluate for OM. Patient reports moderate pain in the right foot. She states that on 10/25/16 she noted some pus draining from the wound. She had Keflex at home and started taking it then. She denies any fever or chills. Past Family Social History Allergies: Coded Allergies: No Known Allergies (Verified , 05/07/16) Past Medical History Severe RA, followed by Dr. Girard Osteoporosis Past Surgical History Transmetatarsal amputation R foot Partial toe amputations L foot Active Ordered Medications Current Medications Medications (Trade) Dose Ordered Sig/Anup Route Start Time Stop Time Status Last Admin (Tylenol) 650 mg Q4H PRN PO 10/31/16 16:30 (Zofran Inj) 4 mg Q6H PRN IV 10/31/16 16:30 ([place] 5-325 Mg) 1 tab Q4H PRN PO 10/31/16 16:30 ([place] 5-325 Mg) 2 tab Q4H PRN PO 10/31/16 16:30 (Colace) 100 mg BID PO 10/31/16 21:00 (Protonix) 40 mg DAILY PO 11/01/16 09:00 11/01/16 08:21 Family History n/c Social History denies Physical Exam Vital Signs Vital Signs Date Time Temp Pulse Resp B/P Pulse Ox O2 Delivery O2 Flow Rate FiO2 11/01/16 16:00 97.3 102 17 144/72 99 11/01/16 12:00 97.3 93 16 131/69 99 11/01/16 08:00 96.7 112 17 163/76 99 11/01/16 00:00 96.8 88 21 136/65 100 10/31/16 20:00 96.2 95 20 136/76 100 Physical Exam Small ulceration L plantar hallux with no purulence noted. 0.2cm diameter and 0.1cm depth. No sign of infection present. Ulceration noted to R sub residual 5th metatarsal base area probes to bone, 1cm diameter and 1cm depth. Chronic granulation tissue and fibrotic tissue to base of wound. Mild peripheral erythema. No samantha purulence present. Very painful Palpable pedal pulses. Sensation intact to light touch. Laboratory Laboratory Tests Test 11/01/16 04:10 White Blood Count 7.1 Red Blood Count 3.55 Hemoglobin 9.4 Hematocrit 28.7 Mean Corpuscular Volume 80.9 Mean Corpuscular Hemoglobin 26.5 Mean Corpuscular Hemoglobin 32.7 Concent Red Cell Distribution Width 18.0 Platelet Count 143 Mean Platelet Volume 12.2 Neutrophils (%) (Auto) 66.2 Lymphocytes (%) (Auto) 26.5 Monocytes (%) (Auto) 6.8 Eosinophils (%) (Auto) 0.3 Basophils (%) (Auto) 0.2 Neutrophils # (Auto) 4.7 Lymphocytes # (Auto) 1.9 Monocytes # (Auto) 0.5 Eosinophils # (Auto) 0.0 Basophils # (Auto) 0.0 CBC Comment DIFF FINAL Differential Comment Sodium Level 143 Potassium Level 3.8 Chloride Level 109 Carbon Dioxide Level 24.5 Anion Gap 10 Blood Urea Nitrogen 10 Creatinine 0.64 Estimat Glomerular Filtration 93 Rate Random Glucose 78 Calcium Level 8.6 Magnesium Level 1.9 Date/Time Procedure Status Source Growth 10/31/16 14:50 Gram Stain - Final Resulted Wound Foot 10/31/16 14:50 Wound Culture - Preliminary Resulted Wound Foot NO GROWTH IN 24 HOURS. 10/31/16 13:50 Aerobic Blood Culture - Preliminary Resulted Blood Peripheral NO GROWTH IN 1 DAY 10/31/16 13:50 Anaerobic Blood Culture - Preliminary Resulted Blood Peripheral NO GROWTH IN 1 DAY Result Diagram: 11/01/16 0410 11/01/16 0410 Imaging Last Impressions Foot MRI 10/31/16 0000 Signed Impressions: Service Date/Time: Monday, October 31, 2016 18:13 - CONCLUSION: 1. Previous distal foot amputation at the level of the mid metatarsals. 2. Soft tissue abscess plantar/distal to the fourth and fifth metatarsal remnants. The abscess extends down to the distal surface of the fifth metatarsal remnant and the bone itself appears irregular; I believe there is superficial osteomyelitis developing of this bone. No osteomyelitis of the fourth metatarsal. 3. Slightly organized fluid collection plantar and distal to the first metatarsal remnant that is most likely postoperative seroma. No features to substantiate abscess or first metatarsal remnant osteomyelitis. Lenard Hogan MD Chest X-Ray 10/31/16 0000 Signed Impressions: Service Date/Time: Monday, October 31, 2016 14:05 - CONCLUSION: No acute cardiopulmonary disease. Kaushal Jenkins MD Assessment and Plan Assessment and Plan Possible osteomyelitis R remnant of distal 5th metatarsal base. Plan to OR to remove bone and attempt wound closure. Plan to take bone biopsy and culture of residual 5th metatarsal base and excise wound. Will await results to determine length/need for IV antibiotics NWB to R forefoot PT to assess need to assistance with NWB R foot Vangie Alfaro DPM Nov 01, 2016 18:51
[2016-11-01 20:00] VITALS: BP 134/67; PULSE 102; RESP 17; TEMP 97.6; O2SAT 100
--- NOTE | 2016-11-01 21:25 | HHI.PR ---
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 1cm diameter wound, 1cm depth down to plantar residual 5th metatarsal base. Wound excised 3:1 ratio and sent to pathology as specimen, and bone visualized through plantar residual wound. Residual bone removed from remaining 5th metatarsal, followed by bone biopsy and bone culture of remaining 5th met-base bone, sent to pathology, followed by irrigation with 3L NS and primary closure with 2-0 nylon suture. Dressing with adaptic, 4x4, cast padding, florence R residual foot. Await bone biopsy results to determine if long-term antibiotics needed. Nonweightbearing R foot Complications: None Specimen(s) removed: 1. Bone culture of R 5th residual metatarsal to micro 2. Bone biopsy R 5th residual metatarsal to pathology 3. Chronic wound R foot to pathology Estimated blood loss: Minimal, 10mL Anesthesia: LMA, Local (0.5% marcaine plain 10mL) Tourniquet time (min at mmHg) n/a Patient to: PACU Patient Condition: Good Date/Time of Procedure: SEE SURGICAL CARE RECORD Vangie Alfaro DPM Nov 01, 2016 21:25
[2016-11-01] MEDS ORDERED: BUPIVACAINE HCL PF 0.5% 30 ML VIAL ONE (21:29)
[2016-11-01] MEDS ORDERED: VANCOMYCIN HCL 1000 MG VIAL ONE (21:41)
--- NOTE | 2016-11-01 22:42 | RADRPT ---
EXAM DATE/TIME: 11/01/2016 22:23 [facility] COMPARISON: MRI FOOT RIGHT W & W/O CONTRAST, October 31, 2016, 18:13. INDICATIONS : Post op right foot surgery. MEDICAL HISTORY : Rheumatoid arthritis. Osteoporosis. SURGICAL HISTORY : Previous amputation to right foot, toes. ENCOUNTER: Initial ACUITY: 2 days PAIN SCORE: 0/10 LOCATION: Right foot. FINDINGS: The patient is status post a transmetatarsal amputation. There is irregularity about the fifth metat arsal surgical site, nonspecific. Osteomyelitis was suspected by MRI. CONCLUSION: Abnormal base of the fifth metatarsal in this patient who is status post a transmetat arsal amputation. Please see the MRI report of the foot. Jose Miguel Coleman MD FACR on November 01, 2016 at 22:35 Board Certified Radiologist. This report was verified electronically.
[2016-11-01] MEDS ORDERED: DO NOT ADM ANY ANTICOAGULANT DRUGS PRN (23:00)
[2016-11-02] VITALS (8 sets, daily range): BP systolic 109–143; BP diastolic 58–65; PULSE 92–106; RESP 17–18; TEMP 96.1–98; O2SAT 96–100
[2016-11-02] MEDS: ACETAMINOPHEN/HYDROcodone 325 MG/5 MG TAB PO PRN ×4 (05:19→22:13)
[2016-11-02] MEDS: DOCUSATE SODIUM 100 MG CAP PO SCH ×2 (09:00→21:00)
[2016-11-02] MEDS: PANTOPRAZOLE SOD 40 MG DELAYED RELEASE TAB PO SCH (09:59)
--- NOTE | 2016-11-02 13:12 | HHI.PR ---
Subjective Remarks doing ok Objective Vitals heart reg lung cta abd s/nt ext right foot bandaged. Vital Signs Date Time Temp Pulse Resp B/P Pulse Ox O2 Delivery O2 Flow Rate FiO2 11/02/16 12:28 96 21 11/02/16 12:00 98.0 95 18 109/58 99 11/02/16 08:00 96.8 106 17 130/61 99 11/02/16 04:00 97.2 95 17 127/58 99 11/02/16 00:00 96.1 100 17 143/62 100 11/01/16 22:45 98.3 91 18 127/58 100 Nasal Cannula 2 11/01/16 22:30 92 20 127/61 100 Nasal Cannula 2 11/01/16 22:16 98.3 102 15 131/62 100 Nasal Cannula 4 11/01/16 20:00 97.6 102 17 134/67 100 11/01/16 16:00 97.3 102 17 144/72 99 11/01/16 11/01/16 11/02/16 15:00 23:00 07:00 Intake Total 240 ml 890 ml 240 ml Output Total 5 ml 300 ml Balance 240 ml 885 ml -60 ml Intake Oral 240 ml 240 ml 240 ml IV Total 300 ml 0 ml Other 350 ml Output Urine Total 300 ml Estimated Blood Loss 5 ml # Voids 3 1 # Bowel Movements 0 Result Diagram: 11/01/16 0410 11/01/16 0410 Imaging Last Impressions Foot MRI 10/31/16 0000 Signed Impressions: Service Date/Time: Monday, October 31, 2016 18:13 - CONCLUSION: 1. Previous distal foot amputation at the level of the mid metatarsals. 2. Soft tissue abscess plantar/distal to the fourth and fifth metatarsal remnants. The abscess extends down to the distal surface of the fifth metatarsal remnant and the bone itself appears irregular; I believe there is superficial osteomyelitis developing of this bone. No osteomyelitis of the fourth metatarsal. 3. Slightly organized fluid collection plantar and distal to the first metatarsal remnant that is most likely postoperative seroma. No features to substantiate abscess or first metatarsal remnant osteomyelitis. Lenard Hogan MD Chest X-Ray 10/31/16 0000 Signed Impressions: Service Date/Time: Monday, October 31, 2016 14:05 - CONCLUSION: No acute cardiopulmonary disease. Kaushal Jenkins MD Last Impressions Chest X-Ray 10/31/16 0000 Signed Impressions: Service Date/Time: Monday, October 31, 2016 14:05 - CONCLUSION: No acute cardiopulmonary disease. Kaushal Jenkins MD A/P Problem List: (1) Ulcer of right foot Status: Acute Plan: - Patient is a 66 y/o female with severe RA who was sent to the ED from her [place] health [place] office for evaluation of right foot plantar wound. - She reportedly developed an ulcer on the plantar surface of her right foot approximately 6 weeks ago and has been followed by Dr. Alfaro. She was seen by Dr. Alfaro today and the wound was debrided at which time she was advised to come to the emergency department for further evaluation, admission, and treatment for possible osteomyelitis. - She had been taking Keflex prior to today. - MRI of the foot (10/31/16) --> Previous distal foot amputation at the level of the mid metatarsals. Soft tissue abscess plantar/distal to the fourth and fifth metatarsal remnants. The abscess extends down to the distal surface of the fifth metatarsal remnant and the bone itself appears irregular; I believe there is superficial osteomyelitis developing of this bone. No osteomyelitis of the fourth metatarsal. Slightly organized fluid collection plantar and distal to the first metatarsal remnant that is most likely postoperative seroma. No features to substantiate abscess or first metatarsal remnant osteomyelitis. - Blood cultures with NGTD - Wound culture pending. - Pt was given IV Vancomycin and Zosyn in the ED. - s/p I/D and bone bx await path to decide on ABX (2) Failure of outpatient treatment Status: Acute Plan: - See above. (3) Rheumatoid arthritis Status: Chronic Plan: - Pt with severe RA on Methotrexate, Plaquenil, and Prednisone - Pt follows with Dr. Haynes (4) GERD (gastroesophageal reflux disease) Status: Chronic Plan: PPI Problem Qualifiers (1) Ulcer of right foot: Qualified Code: L97.519 - Ulcer of right foot, with unspecified severity Etienne Minaya MD Nov 02, 2016 13:12
--- NOTE | 2016-11-02 17:30 | PD.POD ---
Subjective Podiatric Problems POD #1 s/p Bone biopsy R residual 5th metatarsal with excision of wound (11/01/16 [facility]) Past Med/Surg/Social History Social History Smoking Status: Never Smoker Objective Vital Signs Vital Signs Date Time Temp Pulse Resp B/P Pulse Ox O2 Delivery O2 Flow Rate FiO2 11/02/16 16:00 97.5 100 17 126/60 99 11/02/16 12:28 96 21 11/02/16 12:00 98.0 95 18 109/58 99 11/02/16 08:00 96.8 106 17 130/61 99 11/02/16 04:00 97.2 95 17 127/58 99 11/02/16 00:00 96.1 100 17 143/62 100 11/01/16 22:45 98.3 91 18 127/58 100 Nasal Cannula 2 11/01/16 22:30 92 20 127/61 100 Nasal Cannula 2 11/01/16 22:16 98.3 102 15 131/62 100 Nasal Cannula 4 11/01/16 20:00 97.6 102 17 134/67 100 Coded Allergies: No Known Allergies (Verified , 05/07/16) Medications and IVs Current Medications Medications (Trade) Dose Ordered Sig/Anup Route Start Time Stop Time Status Last Admin (Tylenol) 650 mg Q4H PRN PO 10/31/16 16:30 (Zofran Inj) 4 mg Q6H PRN IV 10/31/16 16:30 ([place]ma 5-325 Mg) 1 tab Q4H PRN PO 10/31/16 16:30 11/02/16 16:46 ([place] 5-325 Mg) 2 tab Q4H PRN PO 10/31/16 16:30 (Colace) 100 mg BID PO 10/31/16 21:00 (Protonix) 40 mg DAILY PO 11/01/16 09:00 11/02/16 09:59 Miscellaneous Information ALL NURSING DEPARTME... UNSCH PRN .XX 11/01/16 23:00 11/02/16 22:59 Other Results Microbiology Date/Time Procedure Status Source Growth 11/01/16 21:30 Gram Stain - Final Resulted Wound Toe 11/01/16 21:30 Wound Culture - Preliminary Resulted Wound Toe NO GROWTH IN 24 HOURS. 11/01/16 21:30 Fungal Smear - Final Resulted Wound Toe NO FUNGAL ELEMENTS SEEN. 11/01/16 21:30 Fungal Culture Resulted Wound Toe Pending 11/01/16 21:30 Acid Fast Stain Received Wound Toe Pending 11/01/16 21:30 Mycobacterial Culture Received Wound Toe Pending 10/31/16 13:50 Aerobic Blood Culture - Preliminary Resulted Blood Peripheral NO GROWTH IN 2 DAYS 10/31/16 13:50 Anaerobic Blood Culture - Preliminary Resulted Blood Peripheral NO GROWTH IN 2 DAYS Objective Remarks Last Impressions Foot X-Ray 11/01/16 0000 Signed Impressions: Service Date/Time: Tuesday, November 01, 2016 22:23 - CONCLUSION: Abnormal base of the fifth metatarsal in this patient who is status post a transmetatarsal amputation. Please see the MRI report of the foot. Jose Miguel Coleman MD FACR Foot MRI 10/31/16 0000 Signed Impressions: Service Date/Time: Monday, October 31, 2016 18:13 - CONCLUSION: 1. Previous distal foot amputation at the level of the mid metatarsals. 2. Soft tissue abscess plantar/distal to the fourth and fifth metatarsal remnants. The abscess extends down to the distal surface of the fifth metatarsal remnant and the bone itself appears irregular; I believe there is superficial osteomyelitis developing of this bone. No osteomyelitis of the fourth metatarsal. 3. Slightly organized fluid collection plantar and distal to the first metatarsal remnant that is most likely postoperative seroma. No features to substantiate abscess or first metatarsal remnant osteomyelitis. Lenard Hogan MD Chest X-Ray 10/31/16 0000 Signed Impressions: Service Date/Time: Monday, October 31, 2016 14:05 - CONCLUSION: No acute cardiopulmonary disease. Kaushal Jenkins MD Physical Exam Remarks R foot bandage clean, dry, intact. Assessment & Plan A/P POD #1 s/p Bone biopsy R residual 5th metatarsal with excision of wound ( [facility]) Await bone biopsy results to determine length of course of antibiotics Await intraoperative culture results Continue nonweightbearing keep bandage clean, dry, intact R foot DominicVangie DPBenoit Nov 02, 2016 17:30
[2016-11-03] VITALS: BP 123/60; PULSE 90; RESP 16; TEMP 97.1; O2SAT 98
[2016-11-03 08:00] VITALS: BP 132/61; PULSE 108; RESP 17; TEMP 97.3; O2SAT 96
[2016-11-03] MEDS: PANTOPRAZOLE SOD 40 MG DELAYED RELEASE TAB PO SCH (08:37)
[2016-11-03] MEDS: DOCUSATE SODIUM 100 MG CAP PO SCH ×2 (08:38→19:47)
[2016-11-03 08:46] VITALS: O2SAT 98
[2016-11-03] MEDS: ACETAMINOPHEN/HYDROcodone 325 MG/5 MG TAB PO PRN ×3 (09:15→22:42)
--- NOTE | 2016-11-03 09:37 | PD.PN.STU ---
Subjective Remarks Patient post op for right foot debridement day 2 Complains surgical site pain, improving compared to yesterday Able to ambulate on heels using walker, eager to head home Denies fever, chills, otherwise no complaints Mildly tachycardic in chart, sinus rhythm 94bpm noted on time of exam Objective Vitals Vital Signs Date Time Temp Pulse Resp B/P Pulse Ox O2 Delivery O2 Flow Rate FiO2 11/03/16 08:46 98 21 11/03/16 08:00 97.3 108 17 132/61 96 11/03/16 00:00 97.1 90 16 123/60 98 11/02/16 20:00 97.6 92 18 129/65 98 11/02/16 18:12 99 21 11/02/16 16:00 97.5 100 17 126/60 99 11/02/16 12:28 96 21 11/02/16 12:00 98.0 95 18 109/58 99 I/O 11/02/16 11/02/16 11/02/16 11/03/16 11/03/16 11/03/16 07:00 15:00 23:00 07:00 15:00 23:00 Intake Total 240 ml 400 ml 240 ml 240 ml Output Total 300 ml Balance -60 ml 400 ml 240 ml 240 ml Intake Oral 240 ml 400 ml 240 ml 240 ml IV Total 0 ml 0 ml Output Urine Total 300 ml # Voids 2 2 2 # Bowel Movements 0 0 0 Result Diagram: 11/01/16 0410 11/01/16 0410 Other Results Microbiology Date/Time Procedure Status Source Growth 10/31/16 13:40 Aerobic Blood Culture - Preliminary Resulted Blood Peripheral NO GROWTH IN 2 DAYS 10/31/16 13:40 Anaerobic Blood Culture - Preliminary Resulted Blood Peripheral NO GROWTH IN 2 DAYS 10/31/16 13:50 Aerobic Blood Culture - Preliminary Resulted Blood Peripheral NO GROWTH IN 2 DAYS 10/31/16 13:50 Anaerobic Blood Culture - Preliminary Resulted Blood Peripheral NO GROWTH IN 2 DAYS 10/31/16 14:50 Gram Stain - Final Complete Wound Foot 10/31/16 14:50 Wound Culture - Final Complete Wound Foot NO GROWTH IN 72 HRS.--AEROBICALLY OR ... 11/01/16 21:30 Gram Stain - Final Resulted Wound Toe 11/01/16 21:30 Wound Culture - Preliminary Resulted Wound Toe NO GROWTH IN 24 HOURS. 11/01/16 21:30 Acid Fast Stain Received Wound Toe Pending 11/01/16 21:30 Mycobacterial Culture Received Wound Toe Pending 11/01/16 21:30 Fungal Smear - Final Resulted Wound Toe NO FUNGAL ELEMENTS SEEN. 11/01/16 21:30 Fungal Culture Resulted Wound Toe Pending Imaging Last 72 hours Impressions Foot X-Ray 11/01/16 0000 Signed Impressions: Service Date/Time: Tuesday, November 01, 2016 22:23 - CONCLUSION: Abnormal base of the fifth metatarsal in this patient who is status post a transmetatarsal amputation. Please see the MRI report of the foot. Jose Miguel Coleman MD FACR Objective Remarks Patient resting well, moving well, able to stand with walker RRR Lungs clear bilaterally Marked deformation of fingers and toes from chronic RA, multiple toe amputations noted Medications and IVs Current Medications Medications (Trade) Dose Ordered Sig/Anup Route PRN Reason Start Time Stop Time Status Last Admin Dose Admin Acetaminophen (Tylenol) 650 mg Q4H PRN PO fever or headache 10/31/16 16:30 Ondansetron HCl (Zofran Inj) 4 mg Q6H PRN IV nausea 10/31/16 16:30 Acetaminophen/ Hydrocodone Bitart ([place] 5-325 Mg) 1 tab Q4H PRN PO pain 2-5 10/31/16 16:30 11/03/16 09:15 Acetaminophen/ Hydrocodone Bitart ([place] 5-325 Mg) 2 tab Q4H PRN PO pain 6-10 10/31/16 16:30 Docusate Sodium (Colace) 100 mg BID PO 10/31/16 21:00 Pantoprazole Sodium (Protonix) 40 mg DAILY PO 11/01/16 09:00 11/03/16 08:37 A/P Assessment and Plan 1) Right foot ulcer - 6 week history of ulcer with gradual progression, one week prior significant purulent discharge - Podiatry debrided outpatient 10/31, told patient to present to ED for imaging and possible surgical intervention - Had been taking Keflex via podiatry for 1 week, held in ED and given vanco/ zosin, currently not on antibiotic therapy - MRI of the right foot shows evidence of superficial osteomyelitis, surgery pending - Blood and wound cultures negative, surgical specimen samples negative, acid fast staining pending - Pain control PRN - Podiatry suggests surgical debridement (2) Failure of outpatient treatment Status: Acute Plan: - See above. 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 Haynes - Continue outpatient medications (4) GERD (gastroesophageal reflux disease) Status: Chronic Plan: PPI Traci Alonso M3 Nov 03, 2016 09:37
[2016-11-03 12:00] VITALS: BP 105/57; PULSE 108; RESP 18; TEMP 98.5; O2SAT 97
[2016-11-03 16:00] VITALS: BP 110/56; PULSE 97; RESP 19; TEMP 97.7; O2SAT 99
--- NOTE | 2016-11-03 19:14 | HHI.PR ---
Subjective Remarks doing ok. no new problems Objective Vitals heart reg lung cta abd s/nt ext right foot bandaged. Vital Signs Date Time Temp Pulse Resp B/P Pulse Ox O2 Delivery O2 Flow Rate FiO2 11/03/16 16:00 97.7 97 19 110/56 99 11/03/16 12:00 98.5 108 18 105/57 97 11/03/16 08:46 98 21 11/03/16 08:00 97.3 108 17 132/61 96 11/03/16 00:00 97.1 90 16 123/60 98 11/02/16 20:00 97.6 92 18 129/65 98 11/02/16 11/02/16 11/03/16 15:00 23:00 07:00 Intake Total 400 ml 240 ml 240 ml Balance 400 ml 240 ml 240 ml Intake Oral 400 ml 240 ml 240 ml IV Total 0 ml # Voids 2 2 2 # Bowel Movements 0 0 0 Result Diagram: 11/01/16 0410 11/01/16 0410 Imaging Last Impressions Foot MRI 10/31/16 0000 Signed Impressions: Service Date/Time: Monday, October 31, 2016 18:13 - CONCLUSION: 1. Previous distal foot amputation at the level of the mid metatarsals. 2. Soft tissue abscess plantar/distal to the fourth and fifth metatarsal remnants. The abscess extends down to the distal surface of the fifth metatarsal remnant and the bone itself appears irregular; I believe there is superficial osteomyelitis developing of this bone. No osteomyelitis of the fourth metatarsal. 3. Slightly organized fluid collection plantar and distal to the first metatarsal remnant that is most likely postoperative seroma. No features to substantiate abscess or first metatarsal remnant osteomyelitis. Lenard Hogan MD Chest X-Ray 10/31/16 0000 Signed Impressions: Service Date/Time: Monday, October 31, 2016 14:05 - CONCLUSION: No acute cardiopulmonary disease. Kaushal Jenkins MD Last Impressions Chest X-Ray 10/31/16 0000 Signed Impressions: Service Date/Time: Monday, October 31, 2016 14:05 - CONCLUSION: No acute cardiopulmonary disease. 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 - She reportedly developed an ulcer on the plantar surface of her right foot approximately 6 weeks ago and has been followed by Dr. Alfaro. She was seen by Dr. Alfaro today and the wound was debrided at which time she was advised to come to the emergency department for further evaluation, admission, and treatment for possible osteomyelitis. - She had been taking Keflex prior to today. - MRI of the foot (10/31/16) --> Previous distal foot amputation at the level of the mid metatarsals. Soft tissue abscess plantar/distal to the fourth and fifth metatarsal remnants. The abscess extends down to the distal surface of the fifth metatarsal remnant and the bone itself appears irregular; I believe there is superficial osteomyelitis developing of this bone. No osteomyelitis of the fourth metatarsal. Slightly organized fluid collection plantar and distal to the first metatarsal remnant that is most likely postoperative seroma. No features to substantiate abscess or first metatarsal remnant osteomyelitis. - Blood cultures with NGTD - Wound culture pending. - Pt was given IV Vancomycin and Zosyn in the ED. - s/p I/D bone resection , and bone bx await path to decide on ABX. discussed with DR lAfaro who will change bandage tomorrow and if bx neg then d/c on no abx. (2) Failure of outpatient treatment Status: Acute Plan: - See above. (3) Rheumatoid arthritis Status: Chronic Plan: - Pt with severe RA on Methotrexate, Plaquenil, and Prednisone - Pt follows with Dr. Haynes (4) GERD (gastroesophageal reflux disease) Status: Chronic Plan: PPI Problem Qualifiers (1) Ulcer of right foot: Qualified Code: L97.519 - Ulcer of right foot, with unspecified severity Etienne Minaya MD Nov 03, 2016 19:14
[2016-11-03 20:00] VITALS: BP 117/57; PULSE 106; RESP 19; TEMP 97.4; O2SAT 96
--- NOTE | 2016-11-03 21:04 | PD.POD ---
Subjective Podiatric Problems s/p Bone biopsy R residual 5th metatarsal with excision of wound (11/01/16 [facility]) Past Med/Surg/Social History Social History Smoking Status: Never Smoker Objective Vital Signs Vital Signs Date Time Temp Pulse Resp B/P Pulse Ox O2 Delivery O2 Flow Rate FiO2 11/03/16 16:00 97.7 97 19 110/56 99 11/03/16 12:00 98.5 108 18 105/57 97 11/03/16 08:46 98 21 11/03/16 08:00 97.3 108 17 132/61 96 11/03/16 00:00 97.1 90 16 123/60 98 Coded Allergies: No Known Allergies (Verified , 05/07/16) Other Results Microbiology Date/Time Procedure Status Source Growth 11/01/16 21:30 Gram Stain - Final Resulted Wound Toe 11/01/16 21:30 Wound Culture - Preliminary Resulted Wound Toe NO GROWTH IN 48 HOURS. 11/01/16 21:30 Fungal Smear - Final Resulted Wound Toe NO FUNGAL ELEMENTS SEEN. 11/01/16 21:30 Fungal Culture Resulted Wound Toe Pending 11/01/16 21:30 Acid Fast Stain - Final Resulted Wound Toe NO ACID FAST BACILLI SEEN 11/01/16 21:30 Mycobacterial Culture Resulted Wound Toe Pending 10/31/16 13:50 Aerobic Blood Culture - Preliminary Resulted Blood Peripheral NO GROWTH IN 3 DAYS 10/31/16 13:50 Anaerobic Blood Culture - Preliminary Resulted Blood Peripheral NO GROWTH IN 3 DAYS Surgical Bone biopsy: negative for osteomyelitis Objective Remarks Last Impressions Foot X-Ray 11/01/16 0000 Signed Impressions: Service Date/Time: Tuesday, November 01, 2016 22:23 - CONCLUSION: Abnormal base of the fifth metatarsal in this patient who is status post a transmetatarsal amputation. Please see the MRI report of the foot. Jose Miguel Coleman MD FACR Foot MRI 10/31/16 0000 Signed Impressions: Service Date/Time: Monday, October 31, 2016 18:13 - CONCLUSION: 1. Previous distal foot amputation at the level of the mid metatarsals. 2. Soft tissue abscess plantar/distal to the fourth and fifth metatarsal remnants. The abscess extends down to the distal surface of the fifth metatarsal remnant and the bone itself appears irregular; I believe there is superficial osteomyelitis developing of this bone. No osteomyelitis of the fourth metatarsal. 3. Slightly organized fluid collection plantar and distal to the first metatarsal remnant that is most likely postoperative seroma. No features to substantiate abscess or first metatarsal remnant osteomyelitis. Lenard Hogan MD Chest X-Ray 10/31/16 0000 Signed Impressions: Service Date/Time: Monday, October 31, 2016 14:05 - CONCLUSION: No acute cardiopulmonary disease. Kaushal Jenkins MD Assessment & Plan A/P s/p Bone biopsy R residual 5th metatarsal with excision of wound (11/01/16 [facility]) Bone biopsy results and cultures negative OK to d/c patient and she will follow up in clinic next week for dressing change. Keep dressing clean, dry, intact. Surgical shoe R foot and only heel contact allowed. CYNTHIA forefoot Vangie Sherman DPM Nov 03, 2016 21:04
[2016-11-04] VITALS: BP 112/59; PULSE 104; RESP 21; TEMP 97.9; O2SAT 97
[2016-11-04 08:00] VITALS: BP 116/63; PULSE 79; RESP 20; TEMP 98; O2SAT 97
[2016-11-04] MEDS: DOCUSATE SODIUM 100 MG CAP PO SCH (08:10)
[2016-11-04] MEDS: PANTOPRAZOLE SOD 40 MG DELAYED RELEASE TAB PO SCH (08:12)
[2016-11-04] MEDS: ACETAMINOPHEN/HYDROcodone 325 MG/5 MG TAB PO PRN (09:56)
[2016-11-04 12:00] VITALS: BP 117/58; PULSE 106; RESP 20; TEMP 97.7; O2SAT 97
--- NOTE | 2016-11-04 14:15 | HHI.PR ---
Subjective Remarks eager for d/c Objective Vitals heart reg lung cta abd s/nt ext right foot bandaged Vital Signs Date Time Temp Pulse Resp B/P Pulse Ox O2 Delivery O2 Flow Rate FiO2 11/04/16 12:00 97.7 106 20 117/58 97 11/04/16 08:00 98.0 79 20 116/63 97 11/04/16 00:00 97.9 104 21 112/59 97 11/03/16 20:00 97.4 106 19 117/57 96 11/03/16 16:00 97.7 97 19 110/56 99 11/03/16 11/03/16 11/04/16 15:00 23:00 07:00 Intake Total 275 ml 240 ml 240 ml Balance 275 ml 240 ml 240 ml Intake Oral 275 ml 240 ml 240 ml IV Total 0 ml # Voids 3 1 1 # Bowel Movements 1 1 Result Diagram: 11/01/16 0410 11/01/16 0410 Imaging Last Impressions Foot MRI 10/31/16 0000 Signed Impressions: Service Date/Time: Monday, October 31, 2016 18:13 - CONCLUSION: 1. Previous distal foot amputation at the level of the mid metatarsals. 2. Soft tissue abscess plantar/distal to the fourth and fifth metatarsal remnants. The abscess extends down to the distal surface of the fifth metatarsal remnant and the bone itself appears irregular; I believe there is superficial osteomyelitis developing of this bone. No osteomyelitis of the fourth metatarsal. 3. Slightly organized fluid collection plantar and distal to the first metatarsal remnant that is most likely postoperative seroma. No features to substantiate abscess or first metatarsal remnant osteomyelitis. Lenard Hogan MD Chest X-Ray 10/31/16 0000 Signed Impressions: Service Date/Time: Monday, October 31, 2016 14:05 - CONCLUSION: No acute cardiopulmonary disease. Kaushal Jenkins MD Last Impressions Chest X-Ray 10/31/16 0000 Signed Impressions: Service Date/Time: Monday, October 31, 2016 14:05 - CONCLUSION: No acute cardiopulmonary disease. 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 - She reportedly developed an ulcer on the plantar surface of her right foot approximately 6 weeks ago and has been followed by Dr. Alfaro. She was seen by Dr. Alfaro today and the wound was debrided at which time she was advised to come to the emergency department for further evaluation, admission, and treatment for possible osteomyelitis. - She had been taking Keflex prior to today. - MRI of the foot (10/31/16) --> Previous distal foot amputation at the level of the mid metatarsals. Soft tissue abscess plantar/distal to the fourth and fifth metatarsal remnants. The abscess extends down to the distal surface of the fifth metatarsal remnant and the bone itself appears irregular; I believe there is superficial osteomyelitis developing of this bone. No osteomyelitis of the fourth metatarsal. Slightly organized fluid collection plantar and distal to the first metatarsal remnant that is most likely postoperative seroma. No features to substantiate abscess or first metatarsal remnant osteomyelitis. - Blood cultures with NGTD - Wound culture pending. - Pt was given IV Vancomycin and Zosyn in the ED. - s/p I/D bone resection , and bone bx bone bx neg for osteo. d/c with f/u (2) Failure of outpatient treatment Status: Acute Plan: - See above. (3) Rheumatoid arthritis Status: Chronic Plan: - Pt with severe RA on Methotrexate, Plaquenil, and Prednisone - Pt follows with Dr. Haynes (4) GERD (gastroesophageal reflux disease) Status: Chronic Plan: PPI Problem Qualifiers (1) Ulcer of right foot: Qualified Code: L97.519 - Ulcer of right foot, with unspecified severity Etienne Minaya MD Nov 04, 2016 14:15
[2016-11-04] MEDS ORDERED: HYDR-3516 PO (14:16)
--- NOTE | 2016-11-04 14:16 | HHI.DCPOC ---
Discharge Care Plan Diagnosis: (1) Ulcer of right foot Goals to Promote Your Health * To prevent worsening of your condition and complications * To maintain your health at the optimal level Directions to Meet Your Goals Take your medications as prescribed Follow your dietary instruction Follow activity as directed Keep your appointments as scheduled Take your immunizations and boosters as scheduled If your symptoms worsen call your PCP, if no PCP go to Urgent Care Center or Emergency Room Smoking is Dangerous to Your Health. Avoid second hand smoke Call the 24-hour hour crisis hotline for domestic abuse at Etienne Minaya MD Nov 04, 2016 14:16
--- NOTE | 2016-11-05 17:51 | MP ---
cc: VANGIE LIND DPM DATE OF SURGERY: 11/01/2016. PREOPERATIVE DIAGNOSIS: Osteomyelitis, right residual fifth metatarsal with chronic wound. POSTOPERATIVE DIAGNOSIS: Osteomyelitis, right residual fifth metatarsal with chronic wound. OPERATION: Bone biopsy right residual fifth metatarsal with excision of wound. SURGEON: Vangie Lind DPM. DESKTOP OPERATOR: Staff. PATHOLOGY: 1. Bone culture right fifth residual metatarsal to micro. 2. Bone biopsy right fifth residual metatarsal to pathology. 3. Chronic wound right foot to pathology. PROPHYLAXIS: None. ESTIMATED BLOOD LOSS: 10 mL. ANESTHESIA: LMA plus local consisting of 10 mL of 0.5% Marcaine plain. TOURNIQUET TIME: No tourniquet utilized. CONDITION: Stable to post-anesthesia care unit. COMPLICATIONS: None. DISPOSITION Non-weightbearing right forefoot and await bone biopsy to determine if long-term IV antibiotics are required. INDICATIONS FOR THE PROCEDURE: The patient presented to my clinic with probe to bone on the right residual aspect of the fifth metatarsal distally. She had a history of transmetatarsal amputation with a chronic wound to that area. I discussed with the patient that there was erythema around the area and sent her to the emergency room to be admitted for examination and run further testing to determine if she has osteomyelitis. She was found to have likely osteomyelitis in the distal aspect of the fifth metatarsal so I discussed with her excising the chronic wound and the distal aspect of the residual fifth metatarsal in an attempt to leave the base and then take a bone biopsy to ensure that there was no further infection left in her. She consented to the procedure consisting of bone biopsy right residual fifth metatarsal with excision of wound. DESCRIPTION OF THE PROCEDURE IN DETAIL: She was seen in preop holding by myself, nursing staff and Anesthesia where the correct patient side and site were all confirmed TO be correct in the right foot. She was taken back to the surgical suite, placed in supine position where attention was directed the right foot which was prepped and draped in normal sterile fashion followed by examination of the plantar foot after timeouts were performed as per hospital protocol. A 1 cm diameter wound was noted approximately 1 cm in depth down to the plantar distal aspect of the residual fifth metatarsal. The wound was excised in a 3:1 ratio and sent to pathology as a specimen. The bone was also visualized through this plantar incision and the residual fifth metatarsal was removed using a saw followed by another portion of the bone removed with a rongeur and sent for bone biopsy and another remnant piece of bone sent for culture of the remaining fifth metatarsal base bone. The area was copiously irrigated with 3 liters normal sterile saline followed by primary closure with 2-0 nylon suture followed by dressing consisting of Adaptic, 4x4, cast padding, Mynor to the residual right foot. She tolerated the procedure and anesthesia well and will be non-weightbearing to the right foot and we will await bone biopsy results to determine if long-term IV antibiotics will be needed Vangie MORA/SHAILA /3:38 PM /5:47 PM
== END 2016-11-04 15:09 | disposition home or self-care (01) | DRG 571 ==
LOC: NEPC 13:15 → NEDA 14:50 → N07A 18:57
PROVIDERS: ADMIT Hospitalist; ATTEND Hospitalist
PROC: 0QBN0ZX Excision of Right Metatarsal, Open Approach, Diagnostic (ICD-10-PCS; 2016-11-01)
PROC: 0JBQ0ZZ Excision of Right Foot Subcutaneous Tissue and Fascia, Open Approach (ICD-10-PCS; principal; 2016-11-01 21:20)
DX: L97.519 Non-pressure chronic ulcer of other part of right foot with unspecified severity (principal); E87.2 Acidosis; K21.9 Gastro-esophageal reflux disease without esophagitis; M06.9 Rheumatoid arthritis, unspecified; Z89.421 Acquired absence of other right toe(s)
CPT/HCPCS: 71010; 73630; 73720; 80048; 80053; 83605; 83735; 85025; 85610; 85652; 85730; 86140; 87015; 87040; 87070; 87102; 87116; 87176; 87205; 87206; 88304; 88305; 88307; 88311; 93005; 96374; A9579; J2370; J2543; J3010; J3370; J7030; J7050; L3260